=== PATIENT | male | born 1970 | race Caucasian/White ===

== ENCOUNTER 2025-01-27 09:59 | Emergency (ER) | payer OTHER ==
[2025-01-27] MEDS ORDERED: Sodium Chloride 0.9% 10 ML Syringe FLUSH PRN (10:38)
[2025-01-27] MEDS ORDERED: Sodium Chloride 0.9% 2.5 ML Syringe FLUSH PRN (10:38)
[2025-01-27] MEDS: Ketorolac 30 MG/ML SDV IM ONE (11:07)
[2025-01-27 11:11] LABS: BASOPHILS ABSOLUTE AUTO 0.07 K/uL (0.00-0.20); BASOPHILS PERCENT AUTO 0.9 % (0.0-1.0); EOSINOPHILS ABSOLUTE AUTO 0.28 K/uL (0.00-0.45); EOSINOPHILS PERCENT AUTO 3.6 % (0.0-6.0); IMMATURE GRAN ABSOLUTE AUTO 0.06 K/uL (0.00-0.05); IMMATURE GRAN PERCENT AUTO 0.8 % (0.0-0.4); LYMPHOCYTES ABSOLUTE AUTO 1.12 K/uL (1.00-4.80); LYMPHOCYTES PERCENT AUTO 14.4 % (24.0-44.0); MEAN PLATELET VOLUME 10.2 fL (9.4-12.4); MONOCYTES ABSOLUTE AUTO 1.08 K/uL (0.00-0.80); MONOCYTES PERCENT AUTO 13.9 % (0.0-8.0); NEUTROPHILS ABSOLUTE AUTO 5.17 K/uL (1.80-7.70); NEUTROPHILS PERCENT AUTO 66.4 % (41.0-71.0); NRBC ABSOLUTE 0.00 K/uL (0.00-0.02); NRBC PERCENT 0.0 /100WBC (0.0-0.2); PLATELET COUNT,PLT 201 K/uL (150-400); RED BLOOD CELL COUNT 4.21 M/uL (4.52-5.90); WHITE BLOOD CELL COUNT,WBC 7.78 K/uL (3.9-11.3)
[2025-01-27 11:37] LABS: LACTIC ACID 0.8 mmol/L (0.4-2.0)
[2025-01-27 11:42] LABS: A/G RATIO 0.8 (0.9-1.6); ALANINE AMINOTRANSFERASE,ALT 130.0 IU/L (14-63); ASPARTATE AMNIOTRANSFERASE,AST 143.0 IU/L (15-37); BILIRUBIN TOTAL 1.0 mg/dL (0.2-1.0); BLOOD UREA NITROGEN,BUN 24.0 mg/dL (7.0-18.0); CARBON DIOXIDE,CO2 26.7 mmol/L (21.0-32.0); CHLORIDE,CL 97.0 mmol/L (98-107); CREATINE KINASE,CK 75.0 U/L (26-308); CREATININE 1.5 mg/dL (0.8-1.3); EST CRCL DRUG DOSING (CG) 53.83 mL/min; ESTIMATED GFR 55.0 mL/min (>60); GLUCOSE RANDOM 105.0 mg/dL (74-106); POTASSIUM,K 3.3 mmol/L (3.5-5.1); PROTEIN TOTAL,TP 7.4 g/dL (6.4-8.2); SODIUM,NA 134.0 mmol/L (136-148); TSH ULTRASENSITIVE 0.55 uIU/mL (0.36-3.74)
[2025-01-27] MEDS: Ketorolac 30 MG/ML SDV IVPUSH ONE (11:43)
[2025-01-27 11:54] LABS: APPEARANCE,URINE CLEAR; GLUCOSE,URINE NEGATIVE (NEGATIVE); OCCULT BLOOD,URINE NEGATIVE (NEGATIVE)
== END 2025-01-27 13:25 | disposition home or self-care (01) ==
LOC: MW.ED 09:59
DX: I95.9 Hypotension, unspecified (principal); R05.9 Cough, unspecified; R53.83 Other fatigue; M79.10 Myalgia, unspecified site; R53.1 Weakness; R74.01 Elevation of levels of liver transaminase levels; R79.89 Other specified abnormal findings of blood chemistry
CPT/HCPCS: 36415; 71045; 80053; 81003; 82550; 83605; 83735; 84443; 85025; 87040; 87428; 93005; 96361; 96374; 99285; J1885; J7030

== ENCOUNTER 2025-02-01 19:30 | Emergency (ER) | payer OTHER ==
[2025-02-01] MEDS ORDERED: Sodium Chloride 0.9% 2.5 ML Syringe FLUSH PRN (19:32)
[2025-02-01] MEDS ORDERED: Sodium Chloride 0.9% 10 ML Syringe FLUSH PRN (19:32)
[2025-02-01 20:00] LABS: BASOPHILS ABSOLUTE AUTO 0.06 K/uL (0.00-0.20); BASOPHILS PERCENT AUTO 0.9 % (0.0-1.0); EOSINOPHILS ABSOLUTE AUTO 0.16 K/uL (0.00-0.45); EOSINOPHILS PERCENT AUTO 2.5 % (0.0-6.0); IMMATURE GRAN ABSOLUTE AUTO 0.07 K/uL (0.00-0.05); IMMATURE GRAN PERCENT AUTO 1.1 % (0.0-0.4); LYMPHOCYTES ABSOLUTE AUTO 1.23 K/uL (1.00-4.80); LYMPHOCYTES PERCENT AUTO 19.2 % (24.0-44.0); MEAN PLATELET VOLUME 10.6 fL (9.4-12.4); MONOCYTES ABSOLUTE AUTO 0.64 K/uL (0.00-0.80); MONOCYTES PERCENT AUTO 10.0 % (0.0-8.0); NEUTROPHILS ABSOLUTE AUTO 4.25 K/uL (1.80-7.70); NEUTROPHILS PERCENT AUTO 66.3 % (41.0-71.0); NRBC ABSOLUTE 0.00 K/uL (0.00-0.02); NRBC PERCENT 0.0 /100WBC (0.0-0.2); PLATELET COUNT,PLT 183 K/uL (150-400); RED BLOOD CELL COUNT 3.72 M/uL (4.52-5.90); WHITE BLOOD CELL COUNT,WBC 6.41 K/uL (3.9-11.3)
[2025-02-01 20:05] LABS: BASE EXCESS VENOUS -0.5 (-2.0-3.0); BICARBONATE,VENOUS 23.0 mEq/L (22-29); PCO2 VENOUS 34.0 mmHG (41-51); PH,VENOUS 7.44 (7.32-7.43); PO2 VENOUS 36.0 mmHG (35-45)
[2025-02-01] MEDS: Ondansetron 4 MG/2 ML SDV IVPUSH ONE (20:13)
[2025-02-01 20:16] LABS: INR 1.34 (0.86-1.11)
[2025-02-01 20:26] LABS: IRON,FE 24.0 ug/dL (50-175); PERCENT FE SATURATION 17.14 % (20-55)
[2025-02-01] MEDS: LORazepam 2 MG/ML SDV IVPUSH ONE (20:31)
[2025-02-01 20:35] LABS: ALANINE AMINOTRANSFERASE,ALT 168.0 IU/L (14-63); ASPARTATE AMNIOTRANSFERASE,AST 146.0 IU/L (15-37); BILIRUBIN TOTAL 1.3 mg/dL (0.2-1.0); BLOOD UREA NITROGEN,BUN 8.0 mg/dL (7.0-18.0); CARBON DIOXIDE,CO2 22.2 mmol/L (21.0-32.0); CHLORIDE,CL 95.0 mmol/L (98-107); CREATININE 1.1 mg/dL (0.8-1.3); EST CRCL DRUG DOSING (CG) 73.41 mL/min; GLUCOSE RANDOM 125.0 mg/dL (74-106); POTASSIUM,K 3.6 mmol/L (3.5-5.1); PRO B-TYPE NATRIUR PEPT,BNPPRO 391.0 pg/mL (0-125); SODIUM,NA 128.0 mmol/L (136-148)
[2025-02-01 20:41] LABS: TSH ULTRASENSITIVE 0.79 uIU/mL (0.36-3.74)
[2025-02-01 20:52] LABS: A/G RATIO 0.7 (0.9-1.6); PROTEIN TOTAL,TP 7.0 g/dL (6.4-8.2)
[2025-02-01 20:56] LABS: ESTIMATED GFR 79.0 mL/min (>60)
[2025-02-01 21:06] LABS: PROTEIN,CSF 25.0 mg/dL (15-45)
[2025-02-01] MEDS: Dexamethasone Sod Phos Preservative Free 10 MG/ML Vial IVPUSH ONE (21:06)
[2025-02-01] MEDS: cefTRIAXone 2 GM in Water For Injection, Sterile 20 ML IVPUSH ONE (21:06)
[2025-02-01] MEDS: Iopamidol 755 MG/ML 500 ML Multipack Bottle IVPUSH ONE (22:04)
[2025-02-01 22:23] LABS: APPEARANCE CSF CLEAR; COLOR,CSF COLORLESS
[2025-02-01 22:24] LABS: POLYMORPHONUCLEAR, CSF 0.0 %; RBC,CSF 52 /uL (0-0); WBC,CSF 0 /uL (0-5)
[2025-02-01 22:25] LABS: MONONUCLEAR, CSF 0.0 %
[2025-02-01 22:38] LABS: APPEARANCE,URINE CLEAR; GLUCOSE,URINE NEGATIVE (NEGATIVE); OCCULT BLOOD,URINE NEGATIVE (NEGATIVE)
== END 2025-02-02 00:10 ==
LOC: MW.ED 19:30
DX: D50.9 Iron deficiency anemia, unspecified (principal); K86.1 Other chronic pancreatitis; H55.00 Unspecified nystagmus; A86 Unspecified viral encephalitis; R94.5 Abnormal results of liver function studies; R63.4 Abnormal weight loss; E87.1 Hypo-osmolality and hyponatremia
CPT/HCPCS: 36415; 62270; 70450; 70496; 70498; 71260; 74177; 80053; 80307; 81003; 82803; 82945; 83550; 83605; 83690; 83735; 83880; 84157; 84443; 84484; 85025; 85610; 85652; 86140; 87040; 87070; 87077; 87186; 87205; 87428; 89050; 93005; 96361; 96365; 96366; 96367; 96368; 96375; 99285; A4216; A9270; J0133; J0290; J0696; J1100; J2060; J2405; J3374; J7030; J7050; Q9967; 93010